=== PATIENT | female | born 1995 | race American Indian/Alaskan Native ===

== ENCOUNTER 2016-12-14 22:45 | Emergency (ER) | payer OTHER ==
[2016-12-14 22:46] VITALS: BMI 33.9
--- NOTE | 2016-12-14 23:08 | C.PDOC ---
History Of Present Illness Pt is presents with some vaginal bleeding. States she is . Unsure of duration . No f/c/n/v Tolerating PO Time Seen by Provider: 12/14/16 23:08 Chief Complaint (Nursing): Abdominal Pain History Per: Patient History/Exam Limitations: no limitations Onset/Duration Of Symptoms: Hrs Current Symptoms Are (Timing): Still Present Context: Other Severity: Moderate Pain Scale Rating Of: 4 Location Of Pain/Discomfort: Suprapubic Radiation Of Pain To:: None Quality Of Discomfort: Cramping Associated Symptoms: denies: Fever, Chills Exacerbating Factors: None Alleviating Factors: None Last Bowel Movement: Yesterday Recent travel outside of the [place]: No Additional History Per: Family Abnormal Vaginal Bleeding: Yes Past Medical History Reviewed: Historical Data, Nursing Documentation, Vital Signs Vital Signs: Last Vital Signs Temp 98.3 F 12/15/16 01:03 Pulse 87 12/15/16 01:03 Resp 20 12/15/16 01:03 BP 113/72 12/15/16 01:03 Pulse Ox 100 12/15/16 01:03 - Medical History PMH: Anxiety, Asthma, Bronchitis, Migraine - [facility] Procedures EXTRACTION OF POC, LOW CERVICAL, OPEN APPROACH (02/05/16) MONITORING OF POC, CARDIAC RATE, BLASTING MACHINE OPERATOR APPROACH (02/05/16) RELEASE PERITONEUM, OPEN APPROACH (02/05/16) SPINAL TAP (01/09/14) TRANSFUSE NONAUT RED BLOOD CELLS IN PERIPH VEIN, PERC (02/05/16) Family History: States: No Known Family Hx - Social History Hx Tobacco Use: Yes Hx Alcohol Use: Yes Hx Substance Use: No - Immunization History Hx Tetanus Toxoid Vaccination: No Hx Influenza Vaccination: No Hx Pneumococcal Vaccination: No Review Of Systems Constitutional: Negative for: Fever, Chills Cardiovascular: Negative for: Chest Pain Respiratory: Negative for: Shortness of Breath Gastrointestinal: Negative for: Nausea, Vomiting, Abdominal Pain Genitourinary: Positive for: Vaginal Bleeding Musculoskeletal: Negative for: Back Pain Skin: Negative for: Rash, Lesions, Jaundice, Bruising Neurological: Negative for: Weakness Psych: Negative for: Anxiety Physical Exam - Physical Exam Appears: Non-toxic, No Acute Distress Skin: Warm, Dry Neck: Supple Chest: Symmetrical Cardiovascular: Rhythm Regular Respiratory: No Rales, No Rhonchi, No Wheezing Gastrointestinal/Abdominal: Soft, Tenderness (mild wuprapubic), No Distention Back: Normal Inspection Extremity: Normal ROM Extremity: Bilateral: Atraumatic Neurological/Psych: Oriented x3, Normal Speech, Normal Cognition Gait: Steady ED Course And Treatment - Laboratory Results Result Diagrams: 12/14/16 23:31 03 23:31 O2 Sat by Pulse Oximetry: 100 Pulse Ox Interpretation: Normal Progress Note: blood work ,ivf, US Reevaluation Time: 01:36 Reassessment Condition: Improved Disposition Counseled Patient/Family Regarding: Studies Performed, Diagnosis, Need For Followup, Rx Given - Disposition Referrals: [facility] [Outside] [facility] [Outside] Disposition: HOME/ ROUTINE Disposition Time: 23:08 Condition: FAIR Additional Instructions: Please repeat the serum HCG in about 34-7 days. Do return if excessive bleeding occurs Prescriptions: Nitrofurantoin Macrocrystals [Macrobid] 1 cap PO BID #14 cap Instructions: Urinary Tract Infection in (ED), (ED), Threatened Miscarriage (ED) - Clinical Impression Clinical Impression: , UTI (urinary tract infection) in in first trimester, Vaginal bleeding in
[2016-12-14 23:13] VITALS: PULSE 87; O2SAT 100
[2016-12-14] MEDS ORDERED: Sodium Chloride 0.9% 1,000 ML IV ONE (23:22)
[2016-12-14 23:34] LABS: RBC URINE 8 /hpf (0-3); URINE BACTERIA RARE (<OCC); URINE BILIRUBIN NEGATIVE (NEGATIVE); URINE BLOOD NEGATIVE (NEGATIVE); URINE COLOR Yellow (YELLOW); URINE GLUCOSE (UA) NORMAL (Normal); URINE KETONE NEGATIVE (NEGATIVE); URINE LEUKOCYTE ESTERASE 3+ Leu/uL (Negative); URINE PROTEIN NEGATIVE (NEGATIVE); WBC URINE 50 /hpf (0-5)
[2016-12-14 23:35] LABS: BASO # 0.1 K/uL (0.0-0.2); BASO % 0.7 % (0.0-2.0); EOS # 0.1 K/uL (0.0-0.7); EOS % 0.7 % (0.0-4.0); HEMATOCRIT 31.1 % (34.0-47.0); LYMPH # 2.2 K/uL (1.0-4.3); LYMPH % 22.1 % (20.0-40.0); MEAN CELL VOLUME 70.7 fL (81.0-99.0); MEAN CORPUSCULAR HEMOGLOBIN 22.4 pg (27.0-31.0); MEAN CORPUSCULAR HGB CONC 31.7 g/dL (33.0-37.0); MEAN PLATELET VOLUME 9.7 fL (7.2-11.7); MONO # 0.4 K/uL (0.0-0.8); MONO % 3.7 % (0.0-10.0); RED CELL DISTRIBUTION WIDTH 18.2 % (11.5-14.5); WHITE BLOOD COUNT 10.1 K/uL (4.8-10.8)
[2016-12-14 23:43] LABS: CHLORIDE 98 mmol/L (98-107); SODIUM 136 mmol/L (132-148)
[2016-12-14 23:44] LABS: POTASSIUM 3.5 mmol/L (3.6-5.2)
[2016-12-14 23:46] LABS: ALB/GLOB RATIO 1.1 (1.0-2.1); ALKALINE PHOSPHATASE 48 U/L (38-126); ALT/SGPT 17 U/L (9-52); AST/SGOT 22 U/L (14-36); BILIRUBIN,TOTAL 0.2 mg/dL (0.2-1.3); BLOOD UREA NITROGEN 15 mg/dL (7-17); CARBON DIOXIDE 24 mmol/L (22-30); GFR AFRICAN-AMERICAN > 60; GLUCOSE,RANDOM 106 mg/dL (65-105); TOTAL PROTEIN 7.6 g/dL (6.3-8.3)
[2016-12-14 23:47] LABS: CALCIUM 8.3 mg/dl (8.6-10.4)
[2016-12-15 01:04] VITALS: BP 113/72; RESP 20; TEMP 98.3
--- NOTE | 2016-12-15 09:33 | US ---
Pelvic ultrasound History: Vaginal bleeding. Comparison: None available. Technique: Real-time sonography was performed through the pelvis utilizing transabdominal and transvaginal techniques. Findings: Positive test with beta HCG level measuring 7612. LMP of 11/16/2016. Estimated gestational age by LMP of 5 weeks and 3 days. Uterus: 13.7 x 5.6 x 6.7 centimeters. Retroverted. Cervix measures 3.1 centimeters. Round 9 millimeter hypoechoic structure noted in the uterus which may represent an early intrauterine gestational sac. No yolk sac or pole identified at this juncture. Right ovary: 4.1 x 2.9 x 2.5 centimeters. Normal flow. Complex cystic foci with heterogeneous echogenicity and internal septations within the right ovary measuring 2.2 x 1.6 x 1.6 centimeters. Normal flow. Trace free fluid adjacent to the right adnexa. Left ovary: 2.4 x 2.4 x 2.6 centimeters. Normal flow. Impression: Positive test. 9 millimeter hypoechoic structure seen in the uterus. This may represent an intrauterine gestational sac. No yolk sac or pole identified. These findings may represent an early intrauterine . Additional considerations may include a missed versus ectopic . Continued interval followup is recommended. Complex cystic lesion in the right ovary measuring 2.2 centimeters. Interval follow-up recommended. Limited 1st trimester ultrasound for viability purposes only. Continued interval followup with serial ultrasound, serial HCG levels, and gynecological consultation would be helpful if clinically indicated. These findings were preliminarily reported at 1:28 a.m. on 12/15/[address] Alivia Mcgrath from [facility].
== END 2016-12-15 01:55 | disposition home or self-care (01) ==
LOC: C.ER 22:45
DX: O23.41 Unspecified infection of urinary tract in pregnancy, first trimester (principal); O20.8 Other hemorrhage in early pregnancy; Z3A.01 Less than 8 weeks gestation of pregnancy

== ENCOUNTER 2017-02-03 01:40 | Emergency (ER) | payer OTHER ==
[2017-02-03 01:41] VITALS: BMI 33.9
[2017-02-03 01:55] VITALS: RESP 20; TEMP 98; O2SAT 98
[2017-02-03] MEDS ORDERED: Tmp-Smz 800 mg-160 mg DS Tab PO STA (02:17)
[2017-02-03] MEDS ORDERED: Oxycodone/Acetaminophen 5/325 mg Tab PO STA (02:17)
[2017-02-03] MEDS ORDERED: Tmp-Smz 800 mg-160 mg DS Tab ONE (02:23)
[2017-02-03] MEDS ORDERED: Oxycodone/Acetaminophen 5/325 mg Tab ONE (02:23)
--- NOTE | 2017-02-03 02:38 | C.PDOC ---
History Of Present Illness 21 y/o female presents to ED with complaint of painful lump to her left buttock for 4 days. Denies past history of similar. Otherwise denies fever, chills, discharge from the area, or other associated symptoms. Time Seen by Provider: 02/03/17 02:06 Chief Complaint (Nursing): Abnormal Skin Integrity History Per: Patient History/Exam Limitations: no limitations Onset/Duration Of Symptoms: Days (4) Current Symptoms Are (Timing): Still Present Location Of Injury: Left: Buttock Quality Of Symptoms: Painful. denies: Draining Recent travel outside of the [place]: No Past Medical History Reviewed: Historical Data, Nursing Documentation, Vital Signs Vital Signs: Last Vital Signs Temp 98 F 02/03/17 02:44 Pulse 90 02/03/17 02:44 Resp 20 02/03/17 02:44 BP 140/80 02/03/17 02:44 Pulse Ox 98 02/03/17 04:12 - Medical History PMH: Anxiety, Asthma, Bronchitis, Migraine - [facility] Procedures EXTRACTION OF POC, LOW CERVICAL, OPEN APPROACH (02/05/16) MONITORING OF POC, CARDIAC RATE, RHYTHMIC GYMNASTICS COACH APPROACH (02/05/16) RELEASE PERITONEUM, OPEN APPROACH (02/05/16) SPINAL TAP (01/09/14) TRANSFUSE NONAUT RED BLOOD CELLS IN PERIPH VEIN, PERC (02/05/16) Family History: States: Unknown Family Hx - Social History Hx Tobacco Use: Yes Hx Alcohol Use: Yes Hx Substance Use: No - Immunization History Hx Tetanus Toxoid Vaccination: No Hx Influenza Vaccination: No Hx Pneumococcal Vaccination: No Review Of Systems Except As Marked, All Systems Reviewed And Found Negative. Constitutional: Negative for: Fever, Chills Skin: Positive for: Lesions (painful lump left buttock). Negative for: Rash Physical Exam - Physical Exam Appears: Non-toxic, No Acute Distress Skin: Warm, Dry, Other (4.0 x 6.0 cm area of induration, with tenderness, to the left buttock. No fluctuant mass, open lesions or rectal involvement. ) Head: Atraumatic, Normacephalic Chest: Symmetrical Cardiovascular: Rhythm Regular, No Murmur Respiratory: Normal Breath Sounds, No Rales, No Rhonchi, No Wheezing Extremity: Normal ROM, Capillary Refill (< 2 sec. ) Neurological/Psych: Oriented x3, Normal Speech, Normal Cognition ED Course And Treatment O2 Sat by Pulse Oximetry: 98 (RA) Pulse Ox Interpretation: Normal Progress Note: Patient received pain medications, Keflex, and Bactrim. Advised to return in 2 days for wound check. Disposition Counseled Patient/Family Regarding: Diagnosis, Need For Followup, Rx Given - Disposition Disposition: HOME/ ROUTINE Disposition Time: 02:37 Condition: STABLE Additional Instructions: Apply warm compress to area Take meds as directed Wound check in 2 days in ED Return to ER if worse Prescriptions: Acetaminophen with Codeine [Tylenol with Codeine #3 Tablet] 2 each PO QID #14 tablet Cephalexin [cephalexin] 500 mg PO QID #28 cap Sulfamethoxazole/Trimethoprim [Bactrim DS 800 mg-160 mg] 1 tab PO BID #14 tab Instructions: Abscess (ED) - Clinical Impression Clinical Impression: Abscess of buttock, left - PA / BLOW MOLD OPERATOR / Resident Statement MD/DO has reviewed & agrees with the documentation as recorded. - Scribe Statement The provider has reviewed the documentation as recorded by the Lilly Goetz Provider Scribe Attestation: All medical record entries made by the Lilly were at my direction and personally dictated by me. I have reviewed the chart and agree that the record accurately reflects my personal performance of the history, physical exam, medical decision making, and the department course for this patient. I have also personally directed, reviewed, and agree with the discharge instructions and disposition.
[2017-02-03 02:45] VITALS: BP 140/80; PULSE 90
== END 2017-02-03 02:45 | disposition home or self-care (01) ==
LOC: C.ER 01:40
DX: L02.31 Cutaneous abscess of buttock (principal)

== ENCOUNTER 2018-02-01 21:11 | Emergency (ER) | payer OTHER ==
[2018-02-01 21:12] VITALS: BMI 42.5
--- NOTE | 2018-02-01 21:55 | C.PDOC ---
History Of Present Illness <Sarita Whitmore - Last Filed: 02/02/18 04:18> <Myrna Ocampo - Last Filed: 02/05/18 08:10> 22 year old female with a Hx of pseudotumor cerebri presents to the ER with a complaint of headache, dizziness, and nausea for the past 2 days. (+) photophobia. Patient has had many evaluations in the past for her headaches including multiple LPs and CTs, last one 2 years ago, with negative results. Patient's neurologist is Dr. Mitchell, who she has not seen in approximately one year. Patient took Topamax and "something with a D" for her symptoms but has run out; patient took tylenol today at 18:30 with no relief. Denies vomiting, visual changes, fever, subjective neurological changes, ETOH use, or drug use. ( Myrna Ocampo) <Sarita Whitmore - Last Filed: 02/02/18 04:18> History Per: Patient History/Exam Limitations: no limitations Onset/Duration Of Symptoms: Days Current Symptoms Are (Timing): Still Present Preceeding Symptoms: Known Migraine Symptoms Associated Symptoms: Photophobia, Nausea Recent travel outside of the [place]: No <Myrna Ocampo - Last Filed: 02/05/18 08:10> Time Seen by Provider: 02/01/18 21:39 Chief Complaint (Nursing): Headache Past Medical History Reviewed: Historical Data, Nursing Documentation, Vital Signs - Medical History PMH: Anxiety, Asthma, Bronchitis, Migraine Family History: States: Unknown Family Hx - Social History Hx Tobacco Use: Yes Hx Alcohol Use: Yes Hx Substance Use: No - Immunization History Hx Tetanus Toxoid Vaccination: No Hx Influenza Vaccination: No Hx Pneumococcal Vaccination: No <Myrna Ocampo - Last Filed: 02/05/18 08:10> Vital Signs: Last Vital Signs Temp 98.0 F 02/02/18 04:32 Pulse 73 02/02/18 04:32 Resp 18 02/02/18 04:32 BP 119/70 02/02/18 04:32 Pulse Ox 98 02/02/18 04:32 - [facility] Procedures EXTRACTION OF POC, LOW CERVICAL, OPEN APPROACH (08/07/17) MONITORING OF POC, CARDIAC RATE, AUTOMATION QA ANALYST APPROACH (08/07/17) RELEASE PERITONEUM, OPEN APPROACH (02/05/16) SPINAL TAP (01/09/14) TRANSFUSE NONAUT RED BLOOD CELLS IN PERIPH VEIN, PERC (02/05/16) Review Of Systems Except As Marked, All Systems Reviewed And Found Negative. Constitutional: Negative for: Fever, Chills Gastrointestinal: Positive for: Nausea. Negative for: Vomiting Musculoskeletal: Negative for: Neck Pain Neurological: Positive for: Headache, Dizziness, Other (Photophobia) <Myrna Ocampo - Last Filed: 02/05/18 08:10> Physical Exam - Physical Exam Appears: Non-toxic, No Acute Distress Skin: Normal Color, Warm, Dry Head: Atraumatic, Normacephalic Eye(s): bilateral: Normal Inspection, PERRL, EOMI Ear(s): Bilateral: Normal Nose: Normal Oral Mucosa: Moist Throat: Normal, No Erythema, No Exudate Neck: Normal, Supple Lymphatic: Normal Exam Chest: Symmetrical, No Tenderness Cardiovascular: Rhythm Regular Respiratory: Normal Breath Sounds, No Rales, No Rhonchi, No Wheezing Gastrointestinal/Abdominal: Soft, No Tenderness Extremity: Normal ROM (x4) Neurological/Psych: Oriented x3, Normal Speech, Normal Cognition, Normal Cranial Nerves (2-12 grosslu intact, no focal deficits), Normal Motor, Normal Sensation <Myrna Ocampo - Last Filed: 02/05/18 08:10> ED Course And Treatment - Laboratory Results Result Diagrams: 02/01/18 22:19 02/01/18 22:19 Progress Note: On reevaluation, patient feels a little better, states she feels a little less pressure, however, is still undecided on whether to allow us to perform an LP. Will continue to observe, currently her neurological exam is nonfocal, and she is awake, alert, oriented x3. On second reevaluation, patient states she feels better and refuses LP, patient feels comfortable being discharged home, will discharge with Rx for diamox and topamax, and instructions to follow up with neurologist. <Sarita Whitmore - Last Filed: 02/02/18 04:18> - Laboratory Results Result Diagrams: 02/01/18 22:19 02/01/18 22:19 O2 Sat by Pulse Oximetry: 99 (Room air) Pulse Ox Interpretation: Normal - CT Scan/US CT Head Other Rad Studies (CT/US): Read By Radiologist, Radiology Report Reviewed CT/US Interpretation: EXAM: CT Head Without Intravenous Contrast. CLINICAL HISTORY: 22 years old, female; Condition or disease; Headache; Headache not specified. TECHNIQUE: Axial computed tomography images of the head/brain without intravenous contrast. All CT scans at. this facility use one or more dose reduction techniques, viz.: automated exposure control; ma/kV. adjustment per patient size (including targeted exams where dose is matched to indication; i.e. head);. or iterative reconstruction technique. COMPARISON: No relevant prior studies available. FINDINGS: Brain: No intracranial hemorrhage. No mass. No definite edema. Ventricles: No hydrocephalus. Bones/joints: No acute fracture. Soft tissues: Unremarkable. Sinuses: No acute sinusitis. Mastoid air cells: No mastoid effusion. Orbits: Unremarkable as visualized. IMPRESSION : 1. No definite acute intracranial abnormality. Progress Note: CT head, blood work, and urinalysis ordered. Imitrex and zofran administered. Labs evaluated: anemia base line. Pt was seen and evaluated by Dr Whitmore, agreed upon plan and treatment. <Myrna Ocampo - Last Filed: 02/05/18 08:10> Disposition <Sarita Whitmore - Last Filed: 02/02/18 04:18> - Disposition Disposition Time: 04:30 <Myrna Ocampo - Last Filed: 02/05/18 08:10> - Disposition Referrals: Dominik Mitchell MD [Medical Doctor] - Disposition: HOME/ ROUTINE Condition: STABLE Additional Instructions: Follow up with Dr Mitchell in 1-2 days. Return to ER if symptoms persist or worsen. Prescriptions: acetaZOLAMIDE [Diamox] 250 mg PO BID #20 tab Topiramate [Topamax] 25 mg PO BID #20 tab Instructions: Headache, Adult (DC) Forms: [facility] (French), Work Excuse - Clinical Impression Clinical Impression: Headache <Sarita Whitmore - Last Filed: 02/02/18 04:18> - PA / ABA THERAPIST / Resident Statement / has reviewed & agrees with the documentation as recorded. - Scribe Statement The provider has reviewed the documentation as recorded by the Scribe <Myrna Ocampo - Last Filed: 02/05/18 08:10> - Scribe Statement Gurpreet Mcduffie All medical record entries made by the Scribe were at my direction and personally dictated by me. I have reviewed the chart and agree that the record accurately reflects my personal performance of the history, physical exam, medical decision making, and the department course for this patient. I have also personally directed, reviewed, and agree with the discharge instructions and disposition. (Myrna Ocampo)
[2018-02-01 22:26] LABS: BASO # 0.1 K/uL (0.0-0.2); BASO % 1.1 % (0.0-2.0); EOS % 0.5 % (0.0-4.0); HEMOGLOBIN 9.6 g/dL (11.0-16.0); LYMPH # 2.9 K/uL (1.0-4.3); LYMPH % 38.8 % (20.0-40.0); MEAN CELL VOLUME 67.5 fL (81.0-99.0); MEAN CORPUSCULAR HEMOGLOBIN 20.9 pg (27.0-31.0); MEAN PLATELET VOLUME 9.4 fL (7.2-11.7); MONO # 0.4 K/uL (0.0-0.8); NEUT # 4.1 K/uL (1.8-7.0); NEUT % 54.6 % (50.0-75.0); NRBC % 0.1 % (0.0-2.0); RBC 4.61 Mil/uL (3.80-5.20); RED CELL DISTRIBUTION WIDTH 18.4 % (11.5-14.5); WHITE BLOOD COUNT 7.5 K/uL (4.8-10.8)
[2018-02-01] MEDS ORDERED: Amoxicillin 250 mg/5 ml Susp (100 ml) ONE (22:26)
[2018-02-01 22:34] LABS: SQUAMOUS EPITHIAL 19 /hpf (0-5); URINE BACTERIA RARE (<OCC); URINE BILIRUBIN NEGATIVE (NEGATIVE); URINE BLOOD NEGATIVE (NEGATIVE); URINE CLARITY Hazy (Clear); URINE COLOR Yellow (YELLOW); URINE GLUCOSE (UA) NORMAL (Normal); URINE LEUKOCYTE ESTERASE NEG Leu/uL (Negative); URINE PROTEIN NEGATIVE (NEGATIVE)
[2018-02-01 22:36] LABS: HCG,QUALITATIVE URINE NEGATIVE (NEGATIVE)
[2018-02-01 22:46] LABS: ALB/GLOB RATIO 1.1 (1.0-2.1); ALT/SGPT 14 U/L (9-52); AST/SGOT 23 U/L (14-36); BLOOD UREA NITROGEN 10 mg/dL (7-17); CALCIUM 8.7 mg/dl (8.6-10.4); GFR AFRICAN-AMERICAN > 60; GFR NON-AFRICAN AMERICAN > 60
[2018-02-01 22:47] LABS: BARBITURATES, UR NEGATIVE (NEGATIVE); BENZODIAZEPINES, UR NEGATIVE (NEGATIVE); OPIATES, UR NEGATIVE (NEGATIVE); PHENCYCLIDINE, UR NEGATIVE (NEGATIVE)
--- NOTE | 2018-02-01 22:55 | CT ---
EXAM: CT Head Without Intravenous Contrast CLINICAL HISTORY: 22 years old, female; Condition or disease; Headache; Headache not specified TECHNIQUE: Axial computed tomography images of the head/brain without intravenous contrast. All CT scans at this facility use one or more dose reduction techniques, viz.: automated exposure control; ma/kV adjustment per patient size (including targeted exams where dose is matched to indication; i.e. head); or iterative reconstruction technique. COMPARISON: No relevant prior studies available. FINDINGS: Brain: No intracranial hemorrhage. No mass. No definite edema. Ventricles: No hydrocephalus. Bones/joints: No acute fracture. Soft tissues: Unremarkable. Sinuses: No acute sinusitis. Mastoid air cells: No mastoid effusion. Orbits: Unremarkable as visualized. IMPRESSION: 1. No definite acute intracranial abnormality.
[2018-02-01] MEDS ORDERED: Apap-Butalbital-Caffeine 325-50-40mg Tab PO STA (23:03)
[2018-02-01] MEDS ORDERED: Morphine 4 MG/ML VIAL ONE (23:57)
[2018-02-02 02:59] VITALS: RESP 18
[2018-02-02] MEDS ORDERED: Morphine 4 MG/ML VIAL ONE (03:06)
[2018-02-02 04:33] VITALS: BP 119/70; PULSE 73; TEMP 98
[2018-02-05 08:07] VITALS: O2SAT 99
== END 2018-02-02 04:42 | disposition home or self-care (01) ==
LOC: C.ER 21:11
DX: R51 Headache (principal)
CPT/HCPCS: 70450; 80053; 80324; 80345; 80346; 80349; 80353; 80358; 80361; 81001; 83992; 84703; 85025; 96374; 96375; 96376; 99285; J2270; J2405

== ENCOUNTER 2018-05-07 15:40 | Inpatient (IN) | payer OTHER ==
[2018-05-07 15:41] VITALS: BMI 42.5
[2018-05-07] MEDS ORDERED: Sodium Chloride 0.9% 1,000 ML IV STA (16:15)
[2018-05-07] MEDS ORDERED: Oxycodone/Acetaminophen 5/325 mg Tab PO STA (16:17)
--- NOTE | 2018-05-07 16:22 | C.PDOC ---
History Of Present Illness 22 y/o F c PMHx anxiety, asthma, scoliosis, pseudotumor cerebri p/w bilateral leg pain x 3 days. Pain is diffusely through both legs, severe, constant, nonradiating, associated with subjective fever and chills although patient states she has not had a fever. She denies chest pain, dyspnea, significant swelling, recent travel, OCP use, trauma, fall, cough. Has never had this pain prior. Time Seen by Provider: 05/07/18 15:56 Chief Complaint (Nursing): Dizziness/Lightheaded Past Medical History Vital Signs: Last Vital Signs Temp 99.6 F 05/07/18 19:12 Pulse 95 H 05/07/18 19:12 Resp 16 05/07/18 19:12 BP 97/61 L 05/07/18 19:12 Pulse Ox 99 05/07/18 19:12 - Medical History PMH: Anxiety, Asthma, Bronchitis, Migraine Denies: Depression, Diabetes, HTN - [facility] Procedures EXTRACTION OF POC, LOW CERVICAL, OPEN APPROACH (08/07/17) MONITORING OF POC, CARDIAC RATE, GENERAL WAREHOUSE WORKER APPROACH (08/07/17) RELEASE PERITONEUM, OPEN APPROACH (02/05/16) SPINAL TAP (01/09/14) TRANSFUSE NONAUT RED BLOOD CELLS IN PERIPH VEIN, PERC (02/05/16) Family History: States: Unknown Family Hx - Social History Hx Tobacco Use: Yes Hx Alcohol Use: Yes Hx Substance Use: No - Immunization History Hx Tetanus Toxoid Vaccination: No Hx Influenza Vaccination: No Hx Pneumococcal Vaccination: No Review Of Systems Except As Marked, All Systems Reviewed And Found Negative. Constitutional: Negative for: Fever Cardiovascular: Negative for: Chest Pain Physical Exam - Physical Exam Additional Physical Exam Comments: Gen: NAD Head: NC/AT Eyes: PERRL ENT: MMM Neck: Supple Chest: No tenderness CV: Regular rate Lungs: CTA b/l Abd: Soft, NT Back: No midline or CVA tenderness Extremities: Mild pitting edema. No focal tenderness or deformity. FROM. Skin: No rash Neuro: Alert, no focal deficit ED Course And Treatment - Laboratory Results Result Diagrams: 05/07/18 16:46 05/07/18 16:46 O2 Sat by Pulse Oximetry: 100 Medical Decision Making Medical Decision Making: Differential includes DVT, rhabdo, and mylagia associated with influenza. Will test with d dimer, CPK, and influenza swab. Treat with Percocet, patient states obtains hives from ibuprofen and has never had toradol before. Labs unremarkable. Patient with unresolved pain. Dr. Penn accepts patient to medical service for intractible pain, recommends rheum consult with Dr. Chavez. Disposition Discussed With : Delma Penn Doctor Will See Patient In The: Hospital - Disposition Disposition: HOSPITALIZED Disposition Time: 18:30 Condition: STABLE - Clinical Impression Clinical Impression: Intractable pain
[2018-05-07 16:50] LABS: BASO % 0.2 % (0.0-2.0); EOS % 0.1 % (0.0-4.0); HEMOGLOBIN 9.5 g/dL (11.0-16.0); LYMPH # 0.4 K/uL (1.0-4.3); MEAN CELL VOLUME 68.7 fL (81.0-99.0); MEAN CORPUSCULAR HEMOGLOBIN 21.4 pg (27.0-31.0); MEAN CORPUSCULAR HGB CONC 31.1 g/dL (33.0-37.0); MEAN PLATELET VOLUME 9.3 fL (7.2-11.7); MONO # 0.4 K/uL (0.0-0.8); MONO % 7.4 % (0.0-10.0); NEUT # 4.7 K/uL (1.8-7.0); NEUT % 85.3 % (50.0-75.0); PLATELET COUNT 215 K/uL (130-400); RBC 4.46 Mil/uL (3.80-5.20); RED CELL DISTRIBUTION WIDTH 17.7 % (11.5-14.5); WHITE BLOOD COUNT 5.5 K/uL (4.8-10.8)
[2018-05-07 16:56] LABS: SQUAMOUS EPITHIAL 1 /hpf (0-5)
[2018-05-07 16:57] LABS: HCG,QUALITATIVE URINE NEGATIVE (NEGATIVE)
[2018-05-07 17:01] LABS: URINE BILIRUBIN NEGATIVE (NEGATIVE); URINE BLOOD NEGATIVE (NEGATIVE); URINE CLARITY Clear (Clear); URINE COLOR Straw (YELLOW); URINE GLUCOSE (UA) NORMAL (Normal); URINE LEUKOCYTE ESTERASE NEG Leu/uL (Negative); URINE PROTEIN NEGATIVE (NEGATIVE); URINE UROBILINOGEN NORMAL mg/dL (0.2-1.0)
[2018-05-07] MEDS ORDERED: Oxycodone/Acetaminophen 5/325 mg Tab ONE (17:09)
[2018-05-07 17:14] LABS: ALB/GLOB RATIO 1.2 (1.0-2.1); ALBUMIN 4.1 g/dL (3.5-5.0); BLOOD UREA NITROGEN 9 mg/dL (7-17); CALCIUM 8.8 mg/dl (8.6-10.4); GFR AFRICAN-AMERICAN > 60; GFR NON-AFRICAN AMERICAN > 60
[2018-05-07 17:15] LABS: ALT/SGPT 23 U/L (9-52); AST/SGOT 17 U/L (14-36)
[2018-05-07 17:25] LABS: ANISOCYTOSIS SLIGHT; LYMPHOCYTE 6 % (20-40); MONOCYTE 8 % (0-10); NEUTROPHIL 86 % (50-75); PLATELET ESTIMATE NORMAL (NORMAL); TOTAL CELLS COUNTED 100
[2018-05-07 17:26] LABS: HYPOCHROMIC MODERATE; MICROCYTOSIS SLIGHT; OVALOCYTES SLIGHT; POLYCHROMIC SLIGHT
[2018-05-07 20:40] VITALS: RESP 20
[2018-05-08 07:03] LABS: BASO % 0.8 % (0.0-2.0); EOS % 0.2 % (0.0-4.0); HEMOGLOBIN 9.1 g/dL (11.0-16.0); LYMPH # 0.8 K/uL (1.0-4.3); LYMPH % 26.8 % (20.0-40.0); MEAN CELL VOLUME 68.6 fL (81.0-99.0); MEAN CORPUSCULAR HEMOGLOBIN 21.6 pg (27.0-31.0); MEAN CORPUSCULAR HGB CONC 31.4 g/dL (33.0-37.0); MEAN PLATELET VOLUME 10.4 fL (7.2-11.7); MONO # 0.5 K/uL (0.0-0.8); MONO % 17.3 % (0.0-10.0); NEUT # 1.7 K/uL (1.8-7.0); NEUT % 54.9 % (50.0-75.0); RBC 4.23 Mil/uL (3.80-5.20); RED CELL DISTRIBUTION WIDTH 17.7 % (11.5-14.5)
[2018-05-08 07:25] LABS: ALB/GLOB RATIO 1.2 (1.0-2.1); ALBUMIN 3.6 g/dL (3.5-5.0); ALT/SGPT 22 U/L (9-52); AST/SGOT 17 U/L (14-36); BLOOD UREA NITROGEN 9 mg/dL (7-17); CALCIUM 8.3 mg/dl (8.6-10.4); GFR AFRICAN-AMERICAN > 60; GFR NON-AFRICAN AMERICAN > 60
--- NOTE | 2018-05-08 11:23 | CP.PCM.HP ---
History of Present Illness - History of Present Illness History of Present Illness: pt came for severe leg pains dificulty ambulating back pain worse for 2 days Present on Admission - Present on Admission Any Indicators Present on Admission: No Review of Systems - Review of Systems Systems not reviewed;Unavailable: Acuity of Condition - Constitutional Constitutional: As Per HPI - EENT Eyes: As Per HPI Ears: As Per HPI Nose/Mouth/Throat: As Per HPI - Breasts Breasts: As Per HPI - Cardiovascular Cardiovascular: As Per HPI - Respiratory Respiratory: As Per HPI - Gastrointestinal Gastrointestinal: As Per HPI - Genitourinary Genitourinary: As Per HPI - Reproductive: Female Reproductive:Female: As Per HPI - Menstruation Menstruation: As Per HPI - Musculoskeletal Musculoskeletal: As Per HPI - Integumentary Integumentary: As Per HPI - Neurological Neurological: As Per HPI - Psychiatric Psychiatric: As Per HPI - Endocrine Endocrine: As Per HPI - Hematologic/Lymphatic Hematologic: As Per HPI Past Patient History - Infectious Disease Hx of Infectious Diseases: None - Past Medical History & Family History Past Medical History?: Yes - Past Social History Smoking Status: Never Smoked - CARDIAC Hx Hypertension: No - PULMONARY Hx Asthma: Yes Hx Bronchitis: Yes - NEUROLOGICAL Hx Migraine: Yes - HEENT Other/Comment: photophobia - MUSCULOSKELETAL/RHEUMATOLOGICAL Hx Back Pain: Yes Hx Falls: No Other/Comment: scoliosis - PSYCHIATRIC Hx Anxiety: Yes Hx Depression: No Hx Substance Use: No - SURGICAL HISTORY Hx Section: Yes (X2) Hx Orthopedic Surgery: Yes (RIGHT ANKLE) - ANESTHESIA Hx Anesthesia: Yes Hx Anesthesia Reactions: No Meds Allergies/Adverse Reactions: Allergies Allergy/AdvReac Type Severity Reaction Status Date / Time ibuprofen [From Motrin] Allergy Intermediate RASH Verified 05/07/18 15:45 Physical Exam - Constitutional Appears: Non-toxic - Head Exam Head Exam: NORMAL INSPECTION - Eye Exam Eye Exam: Normal appearance, PERRL - ENT Exam ENT Exam: Mucous Membranes Moist - Neck Exam Neck exam: Positive for: Normal Inspection - Respiratory Exam Respiratory Exam: Clear to Auscultation Bilateral - Cardiovascular Exam Cardiovascular Exam: REGULAR RHYTHM - GI/Abdominal Exam GI & Abdominal Exam: Normal Bowel Sounds - Extremities Exam Extremities exam: Positive for: calf tenderness, normal inspection - Back Exam Back exam: CVA tenderness (L) - Neurological Exam Neurological exam: Alert, Normal Gait, Oriented x3 - Psychiatric Exam Psychiatric exam: Normal Mood - Skin Skin Exam: Normal Color Results - Vital Signs Recent Vital Signs: Last Vital Signs Temp 98.2 F 05/08/18 08:01 Pulse 81 05/08/18 08:01 Resp 20 05/08/18 08:01 BP 110/60 05/08/18 08:01 Pulse Ox 100 05/08/18 08:01 - Labs Result Diagrams: 05/08/18 06:52 05/08/18 06:52 Labs: Laboratory Results - last 24 hr 05/07/18 05/07/18 05/07/18 16:46 16:46 16:46 WBC 5.5 RBC 4.46 Hgb 9.5 L Hct 30.6 L MCV 68.7 L MCH 21.4 L MCHC 31.1 L RDW 17.7 H Plt Count 215 MPV 9.3 Neut % (Auto) 85.3 H Lymph % (Auto) 7.0 L [place] % (Auto) 7.4 Eos % (Auto) 0.1 Baso % (Auto) 0.2 Neut # (Auto) 4.7 Lymph # (Auto) 0.4 L [place] # (Auto) 0.4 Eos # (Auto) 0.0 Baso # (Auto) 0.0 Neutrophils % (Manual) 86 H Lymphocytes % (Manual) 6 L Monocytes % (Manual) 8 Platelet Estimate Normal Polychromasia Slight Hypochromasia (manual) Moderate Anisocytosis (manual) Slight Microcytosis (manual) Slight Ovalocytes Slight ESR D-Dimer, Quantitative < 200 Sodium Potassium Chloride Carbon Dioxide Anion Gap BUN Creatinine Est GFR ( Amer) Est GFR (Non-Af Amer) Random Glucose Calcium Total Bilirubin AST ALT Alkaline Phosphatase Total Creatine Kinase C-React Prot High Sens Total Protein Albumin Globulin Albumin/Globulin Ratio Urine Color Urine Clarity Urine pH Ur Specific [place] Urine Protein Urine Glucose (UA) Urine Ketones Urine Blood Urine Nitrate Urine Bilirubin Urine Urobilinogen Ur Leukocyte Esterase Urine WBC (Auto) Urine RBC (Auto) Ur Squamous Epith Cells Urine HCG, Qual Influenza Typ A,B (EIA) Negative for flu a/b 05/07/18 05/07/18 05/08/18 16:46 16:46 06:52 WBC 3.0 L RBC 4.23 Hgb 9.1 L Hct 29.0 L MCV 68.6 L MCH 21.6 L MCHC 31.4 L RDW 17.7 H Plt Count 199 MPV 10.4 Neut % (Auto) 54.9 Lymph % (Auto) 26.8 [place] % (Auto) 17.3 H Eos % (Auto) 0.2 Baso % (Auto) 0.8 Neut # (Auto) 1.7 L Lymph # (Auto) 0.8 L [place] # (Auto) 0.5 Eos # (Auto) 0.0 Baso # (Auto) 0.0 Neutrophils % (Manual) Lymphocytes % (Manual) Monocytes % (Manual) Platelet Estimate Polychromasia Hypochromasia (manual) Anisocytosis (manual) Microcytosis (manual) Ovalocytes ESR 28 H D-Dimer, Quantitative Sodium 134 Potassium 3.8 Chloride 101 Carbon Dioxide 26 Anion Gap 11 BUN 9 Creatinine 0.6 L Est GFR ( Amer) > 60 Est GFR (Non-Af Amer) > 60 Random Glucose 86 Calcium 8.8 Total Bilirubin 0.4 AST 17 ALT 23 Alkaline Phosphatase 57 Total Creatine Kinase 99 C-React Prot High Sens Total Protein 7.5 Albumin 4.1 Globulin 3.4 Albumin/Globulin Ratio 1.2 Urine Color Straw Urine Clarity Clear Urine pH 6.0 Ur Specific [place] 1.015 Urine Protein Negative Urine Glucose (UA) Normal Urine Ketones Negative Urine Blood Negative Urine Nitrate Negative Urine Bilirubin Negative Urine Urobilinogen Normal Ur Leukocyte Esterase Neg Urine WBC (Auto) < 1 Urine RBC (Auto) < 1 Ur Squamous Epith Cells 1 Urine HCG, Qual Negative Influenza Typ A,B (EIA) 05/08/18 05/08/18 06:52 06:52 WBC RBC Hgb Hct MCV MCH MCHC RDW Plt Count MPV Neut % (Auto) Lymph % (Auto) [place] % (Auto) Eos % (Auto) Baso % (Auto) Neut # (Auto) Lymph # (Auto) [place] # (Auto) Eos # (Auto) Baso # (Auto) Neutrophils % (Manual) Lymphocytes % (Manual) Monocytes % (Manual) Platelet Estimate Polychromasia Hypochromasia (manual) Anisocytosis (manual) Microcytosis (manual) Ovalocytes ESR D-Dimer, Quantitative Sodium 135 Potassium 4.0 Chloride 104 Carbon Dioxide 24 Anion Gap 11 BUN 9 Creatinine 0.6 L Est GFR ( Amer) > 60 Est GFR (Non-Af Amer) > 60 Random Glucose 84 Calcium 8.3 L Total Bilirubin 0.3 AST 17 ALT 22 Alkaline Phosphatase 50 Total Creatine Kinase C-React Prot High Sens > 15.00 H Total Protein 6.7 Albumin 3.6 Globulin 3.1 Albumin/Globulin Ratio 1.2 Urine Color Urine Clarity Urine pH Ur Specific [place] Urine Protein Urine Glucose (UA) Urine Ketones Urine Blood Urine Nitrate Urine Bilirubin Urine Urobilinogen Ur Leukocyte Esterase Urine WBC (Auto) Urine RBC (Auto) Ur Squamous Epith Cells Urine HCG, Qual Influenza Typ A,B (EIA) Assessment & Plan - Assessment and Plan (Free Text) Assessment: ac leg pains dificulty ambuating fever improved aneamia back pain Plan: as per orders - Date & Time Date: 05/08/18 Time: 11:25
[2018-05-08 15:37] LABS: ANTI SREPTOLYSIN O NEGATIVE (NEGATIVE)
--- NOTE | 2018-05-08 17:28 | CP.PCM.CON ---
History of Present Illness - History of Present Illness History of Present Illness: Neurology Consultation Note: Ms. Truong is a 22-year-old woman with a past medical history of idiopathic intracranial hypertension, who complains of bilateral lower extremity pain/ tingling. The pain involves both legs and the lower back. It radiates from the back to the inner thighs bilaterally, but is worse on the right. She states that the pain is severe. She is on Topamax 100 mg daily at home. She was previously taking Diamox, but stopped it several months ago because it was not renewed. She has not seen a neurologist for over a year due to change in insurance. CT scan of the head was relatively normal. Review of Systems - Review of Systems All systems: reviewed and no additional remarkable complaints except Past Patient History - Infectious Disease Hx of Infectious Diseases: None - Past Medical History & Family History Past Medical History?: Yes - Past Social History Smoking Status: Never Smoked - CARDIAC Hx Hypertension: No - PULMONARY Hx Asthma: Yes Hx Bronchitis: Yes - NEUROLOGICAL Hx Migraine: Yes - HEENT Other/Comment: photophobia - MUSCULOSKELETAL/RHEUMATOLOGICAL Hx Back Pain: Yes Hx Falls: No Other/Comment: scoliosis - PSYCHIATRIC Hx Anxiety: Yes Hx Depression: No Hx Substance Use: No - SURGICAL HISTORY Hx Section: Yes (X2) Hx Orthopedic Surgery: Yes (RIGHT ANKLE) - ANESTHESIA Hx Anesthesia: Yes Hx Anesthesia Reactions: No Meds Allergies/Adverse Reactions: Allergies Allergy/AdvReac Type Severity Reaction Status Date / Time ibuprofen [From Motrin] Allergy Intermediate RASH Verified 05/07/18 15:45 - Medications Medications: Current Medications Duloxetine HCl (Cymbalta) 60 mg PO DAILY [facility] Morphine Sulfate (Morphine) 2 mg IVP Q6H PRN PRN Reason: Pain, moderate (4-7) Last Admin: 05/08/18 16:05 Dose: 2 mg Pneumococcal Polyvalent Vaccine (Pneumovax 23 Vaccine) 0.5 ml IM .ONCE ONE Stop: 05/09/18 10:01 Physical Exam - Neurological Exam Neurological exam: Alert, CN II-XII Intact, Normal Gait, Oriented x3, Reflexes Normal Results - Vital Signs Recent Vital Signs: Last Vital Signs Temp 98.2 F 05/08/18 08:01 Pulse 81 05/08/18 08:01 Resp 20 05/08/18 08:01 BP 110/60 05/08/18 08:01 Pulse Ox 100 05/08/18 08:01 - Labs Result Diagrams: 05/08/18 06:52 05/08/18 06:52 Labs: Laboratory Results - last 24 hr 05/07/18 05/08/18 05/08/18 16:46 06:52 06:52 WBC 3.0 L RBC 4.23 Hgb 9.1 L Hct 29.0 L MCV 68.6 L MCH 21.6 L MCHC 31.4 L RDW 17.7 H Plt Count 199 MPV 10.4 Neut % (Auto) 54.9 Lymph % (Auto) 26.8 [place] % (Auto) 17.3 H Eos % (Auto) 0.2 Baso % (Auto) 0.8 Neut # (Auto) 1.7 L Lymph # (Auto) 0.8 L [place] # (Auto) 0.5 Eos # (Auto) 0.0 Baso # (Auto) 0.0 Neutrophils % (Manual) 86 H Lymphocytes % (Manual) 6 L Monocytes % (Manual) 8 Platelet Estimate Normal Polychromasia Slight Hypochromasia (manual) Moderate Anisocytosis (manual) Slight Microcytosis (manual) Slight Ovalocytes Slight ESR 28 H Sodium 135 Potassium 4.0 Chloride 104 Carbon Dioxide 24 Anion Gap 11 BUN 9 Creatinine 0.6 L Est GFR ( Amer) > 60 Est GFR (Non-Af Amer) > 60 Random Glucose 84 Calcium 8.3 L Total Bilirubin 0.3 AST 17 ALT 22 Alkaline Phosphatase 50 C-React Prot High Sens Total Protein 6.7 Albumin 3.6 Globulin 3.1 Albumin/Globulin Ratio 1.2 Anti-Staphylolysin O 05/08/18 05/08/18 06:52 06:52 WBC RBC Hgb Hct MCV MCH MCHC RDW Plt Count MPV Neut % (Auto) Lymph % (Auto) [place] % (Auto) Eos % (Auto) Baso % (Auto) Neut # (Auto) Lymph # (Auto) [place] # (Auto) Eos # (Auto) Baso # (Auto) Neutrophils % (Manual) Lymphocytes % (Manual) Monocytes % (Manual) Platelet Estimate Polychromasia Hypochromasia (manual) Anisocytosis (manual) Microcytosis (manual) Ovalocytes ESR Sodium Potassium Chloride Carbon Dioxide Anion Gap BUN Creatinine Est GFR ( Amer) Est GFR (Non-Af Amer) Random Glucose Calcium Total Bilirubin AST ALT Alkaline Phosphatase C-React Prot High Sens > 15.00 H Total Protein Albumin Globulin Albumin/Globulin Ratio Anti-Staphylolysin O Negative Assessment & Plan (1) Lower extremity pain Assessment and Plan: The patient has had an 80 lb weight gain over the last 1.5 years and the pain could be due to spinal changes as a result. An MRI of the lumbar spine is recommended. Gabapentin 300 mg TID may be started for the pain. Status: Acute (2) Headache Assessment and Plan: She is on topamax, for her headaches, but she does not have migraine headache, she has headache due to intracranial hypertension. I recommend starting Diamox and obtaining MRI of the brain. She complained of tingling in her lower extremities, which could be due to the Topamax. This should be decreased to 50 mg daily. Status: Acute
--- NOTE | 2018-05-08 17:54 | CT ---
Date of service: 05/08/2018 PROCEDURE: CT HEAD WITHOUT CONTRAST. HISTORY: intractable leg pain/hx of pseudotumor cerebri COMPARISON: Head CT without contrast 02/01/2018. TECHNIQUE: Axial computed tomography images were obtained through the head/brain without intravenous contrast. Radiation dose: Total exam DLP = 813.06 mGy-cm. This CT exam was performed using one or more of the following dose reduction techniques: Automated exposure control, adjustment of the mA and/or kV according to patient size, and/or use of iterative reconstruction technique. FINDINGS: HEMORRHAGE: No intracranial hemorrhage. BRAIN: Normal escalera-white matter differentiation and density are appreciated throughout the cerebrum and cerebellum with the brainstem appearing unremarkable as well. There is no mass effect. There is no suspicious extra-axial fluid collection and the midline brain anatomy appears diffusely unremarkable. No significant interval change appreciable. VENTRICLES: Unremarkable. No hydrocephalus. CALVARIUM: Unremarkable. PARANASAL SINUSES: Unremarkable as visualized. No significant inflammatory changes. MASTOID AIR CELLS: Unremarkable as visualized. No inflammatory changes. OTHER FINDINGS: None. IMPRESSION: Stable normal appearing noncontrast head CT.
[2018-05-08] MEDS: acetaZOLAMIDE 500 mg SR Cap PO SCH (18:52)
--- NOTE | 2018-05-09 08:20 | RAD ---
Date of service: 05/08/2018 PROCEDURE: Bilateral Knee Radiographs. HISTORY: joint pain COMPARISON: None. FINDINGS: BONES: Right Knee: Normal. No fracture. Left Knee: Normal. No fracture. JOINTS: Right Knee: Normal. No osteoarthritis. Left knee: Normal. No osteoarthritis. SOFT TISSUES: Right Knee: Normal. Left Knee: Normal. JOINT EFFUSION: Right Knee: None. Left Knee: None. OTHER FINDINGS: None. IMPRESSION: Normal radiographs of the knees.
--- NOTE | 2018-05-09 08:21 | RAD ---
Date of service: 05/08/2018 PROCEDURE: BILATERAL HANDS RADIOGRAPHS HISTORY: erosions COMPARISON: None available. TECHNIQUE: AP and lateral views of the bilateral hands been submitted for interpretation. FINDINGS: No acute fracture or destructive bony lesion identified. No subluxation or dislocation identified. Local soft tissues appear diffusely unremarkable. IMPRESSION: Unremarkable bilateral hand radiographs.
[2018-05-09] MEDS: acetaZOLAMIDE 500 mg SR Cap PO SCH ×2 (09:26→18:09)
--- NOTE | 2018-05-09 09:31 | CP.PCM.PN ---
Subjective - Date & Time of Evaluation Date of Evaluation: 05/09/18 Time of Evaluation: 09:28 - Subjective Subjective: pt still c/o of pain lower ext tender calf and back venous doppler report pending Objective - Vital Signs/Intake and Output Vital Signs (last 24 hours): Temp Pulse Resp BP Pulse Ox 98.7 F 81 20 116/73 97 05/09/18 07:36 05/09/18 07:36 05/09/18 07:36 05/09/18 07:36 05/09/18 07:36 - Medications Medications: Current Medications Acetazolamide (Diamox Sequels 500 Mg Sr Cap) 500 mg PO BID [facility] Last Admin: 05/09/18 09:26 Dose: 500 mg Duloxetine HCl (Cymbalta) 60 mg PO DAILY [facility] Last Admin: 05/09/18 09:25 Dose: 60 mg Gabapentin (Neurontin) 300 mg PO TID [facility] Last Admin: 05/09/18 09:25 Dose: 300 mg Pneumococcal Polyvalent Vaccine (Pneumovax 23 Vaccine) 0.5 ml IM .ONCE ONE Stop: 05/09/18 10:01 Last Admin: 05/09/18 09:27 Dose: Not Given Topiramate (Topamax) 25 mg PO BID [facility] Last Admin: 05/09/18 09:25 Dose: 25 mg - Labs Labs: 05/08/18 06:52 05/08/18 06:52 - Constitutional Appears: Non-toxic - Head Exam Head Exam: NORMAL INSPECTION - Eye Exam Eye Exam: Normal appearance Pupil Exam: NORMAL ACCOMODATION - ENT Exam ENT Exam: Mucous Membranes Moist - Neck Exam Neck Exam: Full ROM - Respiratory Exam Respiratory Exam: Clear to Ausculation Bilateral - Cardiovascular Exam Cardiovascular Exam: REGULAR RHYTHM - GI/Abdominal Exam GI & Abdominal Exam: Normal Bowel Sounds - Extremities Exam Extremities Exam: Calf Tenderness - Back Exam Back Exam: CVA tenderness (L) - Neurological Exam Neurological Exam: Alert, Oriented x3 - Psychiatric Exam Psychiatric exam: Normal Affect - Skin Skin Exam: Pallor Assessment and Plan - Assessment and Plan (Free Text) Assessment: pain lower ext pain back aneamia obesity Plan: await rhumatology consult and rest of neuro evaluation order pt
[2018-05-09] MEDS ORDERED: Pneumococcal 23-Valent Vaccine IM ONE (10:00)
--- NOTE | 2018-05-09 10:58 | CP.PCM.PN ---
Subjective - Date & Time of Evaluation Date of Evaluation: 05/09/18 Time of Evaluation: 10:55 - Subjective Subjective: Ms. yancey was seen and examined at the bedside. She is alert, oriented in all spheres. She claims of experiencing occipital headache with pain scale of 8/10, non radiating. She denies any dizziness, blurred vision, diplopia, nausea, or vomiting. She further states of having poor appetite due to her headache. She is able to participate during therapy session, however, experiencing low back pain radiating to her right lower extremity. She is able to stand up beside her bed, but not able to ambulate. There was no untoward events overnight. Objective - Vital Signs/Intake and Output Vital Signs (last 24 hours): Temp Pulse Resp BP Pulse Ox 98.7 F 81 20 116/73 97 05/09/18 07:36 05/09/18 07:36 05/09/18 07:36 05/09/18 07:36 05/09/18 07:36 - Medications Medications: Current Medications Acetaminophen (Tylenol 325mg Tab) 650 mg PO Q6 PRN PRN Reason: Pain, moderate (4-7) Acetazolamide (Diamox Sequels 500 Mg Sr Cap) 500 mg PO BID [facility] Last Admin: 05/09/18 09:26 Dose: 500 mg Duloxetine HCl (Cymbalta) 60 mg PO DAILY [facility] Last Admin: 05/09/18 09:25 Dose: 60 mg Gabapentin (Neurontin) 300 mg PO TID [facility] Last Admin: 05/09/18 09:25 Dose: 300 mg Topiramate (Topamax) 25 mg PO BID [facility] Last Admin: 05/09/18 09:25 Dose: 25 mg - Labs Labs: 05/08/18 06:52 05/08/18 06:52 - Constitutional Appears: No Acute Distress - Head Exam Head Exam: NORMAL INSPECTION - Neurological Exam Neurological Exam: Alert, Awake, Oriented x3 Neuro motor strength exam: Left Upper Extremity: 4, Right Upper Extremity: 4, Left Lower Extremity: 4, Right Lower Extremity: 4 Additional comments: alert, able to stand but not ambulate, lower extremities are weak Assessment and Plan (1) Lower extremity pain Assessment & Plan: Case discussed with Dr. Dyer, continue all current medical and physical therapies. Pending MRI of the lumbar spine. Status: Acute (2) Headache Assessment & Plan: Case discussed with Dr. Dyer, continue all current medical regimen including diamox and new doses of topamax. Recommend hydration, repeat CT of the head if the severity of headache intensity or persist, keep head of bed elevated at least 30 degrees. Status: Acute
--- NOTE | 2018-05-10 07:26 | CP.PCM.CON ---
History of Present Illness - History of Present Illness History of Present Illness: 22 year old female complaining of leg and back pain for the past 4 days. She has never had this type of pain in the past. She does suffer from occipatal headaches. Past history includes anxiety, asthma, scoliosis, and pseudo tumor cerebri. Xrays of the knees and hands were negative. Lab studies reveal a sed rate of 28, CRP of 15 and an ASO which was negative. Complete arthritis and lupus panels pending. Review of Systems - Constitutional Constitutional: Headache - Musculoskeletal Musculoskeletal: Arthralgias, Back Pain - Neurological Neurological: Numbness, Headaches - Psychiatric Psychiatric: Depression Past Patient History - Infectious Disease Hx of Infectious Diseases: None - Past Medical History & Family History Past Medical History?: Yes - Past Social History Smoking Status: Light Smoker < 10 Cigarettes Daily Chewing Tobacco Use: No Cigar Use: No Alcohol: None Drugs: Denies - CARDIAC Hx Hypertension: No - PULMONARY Hx Respiratory Disorders: No Hx Asthma: Yes Hx Bronchitis: Yes - NEUROLOGICAL Hx Neurological Disorder: Yes Hx Migraine: Yes - HEENT Hx HEENT Problems: Yes Other/Comment: photophobia - RENAL Hx Chronic Kidney Disease: No - ENDOCRINE/METABOLIC Hx Endocrine Disorders: No - HEMATOLOGICAL/ONCOLOGICAL Hx Blood Disorders: No - INTEGUMENTARY Hx Dermatological Problems: No - MUSCULOSKELETAL/RHEUMATOLOGICAL Hx Musculoskeletal Disorders: Yes Hx Back Pain: Yes Hx Falls: No Other/Comment: scoliosis - GASTROINTESTINAL Hx Gastrointestinal Disorders: No - GENITOURINARY/GYNECOLOGICAL Hx Genitourinary Disorders: No - PSYCHIATRIC Hx Psychophysiologic Disorder: Yes Hx Anxiety: Yes Hx Depression: No Hx Substance Use: No - SURGICAL HISTORY Hx Surgeries: Yes Hx Section: Yes (X2) Hx Orthopedic Surgery: Yes (RIGHT ANKLE) - ANESTHESIA Hx Anesthesia: Yes Hx Anesthesia Reactions: No Hx Malignant Hyperthermia: No Has any member of the family had a problem w/ anesthesia?: No Meds Allergies/Adverse Reactions: Allergies Allergy/AdvReac Type Severity Reaction Status Date / Time ibuprofen [From Motrin] Allergy Intermediate RASH Verified 05/07/18 15:45 - Medications Medications: Current Medications Acetaminophen (Tylenol 325mg Tab) 650 mg PO Q6 PRN PRN Reason: Pain, moderate (4-7) Acetazolamide (Diamox Sequels 500 Mg Sr Cap) 500 mg PO BID [facility] Last Admin: 05/09/18 18:09 Dose: 500 mg Duloxetine HCl (Cymbalta) 60 mg PO DAILY [facility] Last Admin: 05/09/18 09:25 Dose: 60 mg Gabapentin (Neurontin) 300 mg PO TID [facility] Last Admin: 05/09/18 18:09 Dose: 300 mg Topiramate (Topamax) 25 mg PO BID [facility] Last Admin: 05/09/18 18:09 Dose: 25 mg Physical Exam - Constitutional Appears: No Acute Distress - Head Exam Head Exam: NORMOCEPHALIC - Eye Exam Eye Exam: Normal appearance Pupil Exam: NORMAL ACCOMODATION - ENT Exam ENT Exam: Normal Exam - Neck Exam Neck exam: Positive for: Normal Inspection - Respiratory Exam Respiratory Exam: NORMAL BREATHING PATTERN - Cardiovascular Exam Cardiovascular Exam: REGULAR RHYTHM - GI/Abdominal Exam GI & Abdominal Exam: Normal Bowel Sounds - Rectal Exam Rectal Exam: Deferred - Extremities Exam Extremities exam: Positive for: normal inspection - Back Exam Back exam: NORMAL INSPECTION - Neurological Exam Neurological exam: Oriented x3 - Psychiatric Exam Psychiatric exam: Depressed - Skin Skin Exam: Dry Results - Vital Signs Recent Vital Signs: Last Vital Signs Temp 98.9 F 05/09/18 23:59 Pulse 91 H 05/09/18 23:59 Resp 20 05/09/18 23:59 BP 101/69 05/09/18 23:59 Pulse Ox 100 05/09/18 23:59 - Labs Result Diagrams: 05/08/18 06:52 05/08/18 06:52 Assessment & Plan (1) Anemia Status: Acute (2) Lower extremity pain Status: Acute (3) Headache Status: Acute (4) Depression Status: Acute
--- NOTE | 2018-05-10 07:53 | CP.PCM.PN ---
Subjective - Date & Time of Evaluation Date of Evaluation: 05/10/18 Time of Evaluation: 07:49 - Subjective Subjective: Ms. Truong was seen and examined at the bedside. She is alert, oriented, claims of able to sleep last night. She further claims of her headache improved but remains of poor appetite due to her severe low back pain. She is able to move her lower extremities but remains weaker than her upper extremities. There was no untoward events overnight. Objective - Vital Signs/Intake and Output Vital Signs (last 24 hours): Temp Pulse Resp BP Pulse Ox 98.9 F 91 H 20 101/69 100 05/09/18 23:59 05/09/18 23:59 05/09/18 23:59 05/09/18 23:59 05/09/18 23:59 Intake and Output: 05/10/18 05/10/18 06:59 18:59 Intake Total 480 Balance 480 - Medications Medications: Current Medications Acetaminophen (Tylenol 325mg Tab) 650 mg PO Q6 PRN PRN Reason: Pain, moderate (4-7) Acetazolamide (Diamox Sequels 500 Mg Sr Cap) 500 mg PO BID [facility] Last Admin: 05/09/18 18:09 Dose: 500 mg Duloxetine HCl (Cymbalta) 60 mg PO DAILY [facility] Last Admin: 05/09/18 09:25 Dose: 60 mg Gabapentin (Neurontin) 300 mg PO TID [facility] Last Admin: 05/09/18 18:09 Dose: 300 mg Topiramate (Topamax) 25 mg PO BID [facility] Last Admin: 05/09/18 18:09 Dose: 25 mg - Labs Labs: 05/08/18 06:52 05/08/18 06:52 - Constitutional Appears: No Acute Distress - Head Exam Head Exam: NORMAL INSPECTION - Eye Exam Pupil Exam: PERRL - Neurological Exam Neurological Exam: Alert, Awake, Oriented x3 Neuro motor strength exam: Left Upper Extremity: 5, Right Upper Extremity: 5, Left Lower Extremity: 2/1, Right Lower Extremity: 2/1 Additional comments: alert, oriented, able to follow simple commands, sensation is intact. Assessment and Plan (1) Lower extremity pain Assessment & Plan: Case discussed with Dr. Dyer, continue all current medical and physical therapies. Pending MRI of the lumbar spine. Status: Acute
[2018-05-10 08:08] VITALS: BP 99/62; PULSE 85; TEMP 98.2; O2SAT 96
--- NOTE | 2018-05-10 10:26 | RAD ---
Date of service: 05/10/2018 PROCEDURE: Radiographs of the Lumbar Spine. HISTORY: back pain COMPARISON: No prior. FINDINGS: BONES: Normal alignment. No listhesis. No fracture. DISC SPACES: Unremarkable. OTHER FINDINGS: None. IMPRESSION: Unremarkable radiographs of the lumbar spine.
[2018-05-10] MEDS: acetaZOLAMIDE 500 mg SR Cap PO SCH (11:18)
--- NOTE | 2018-05-10 12:07 | MRI ---
Date of service: 05/10/2018 PROCEDURE: MRI BRAIN WITHOUT CONTRAST HISTORY: Intracranial hypertension COMPARISON: Comparison made with CT scan brain dated 05/08/2018. TECHNIQUE: Multiplanar, multisequence MR images of the brain were obtained without intravenous contrast enhancement. FINDINGS: HEMORRHAGE: No acute parenchymal, subarachnoid nor extra-axial hemorrhage. No evidence of hemosiderin deposition identified on gradient echo weighted sequence DWI: No evidence of an acute or early subacute infarction seen on diffusion imaging. BRAIN PARENCHYMA: No mass effect or edema. No atrophy or chronic microvascular ischemic changes. . VENTRICLES: No obstructive hydrocephalus. CRANIUM: Unremarkable. ORBITS: Grossly unremarkable. PARANASAL SINUSES/MASTOIDS: Clear VASCULAR SYSTEM: Visualized major vascular flow voids at skull base patent. OTHER FINDINGS: Partially empty sella. The optic nerve heads and do not appear bulbous or bulging however the optic nerves are slightly tortuous more so on the right side. Note that both findings of partially empty sella or slightly tortuous intraorbital segments of the optic nerves can be seen in the intracranial hypertension. Clinical correlation recommended. IMPRESSION: No evidence of acute intracranial hemorrhage or infarct. No masses are identified. No evidence of hydrocephalus. Partially empty sella. The optic nerve heads and do not appear bulbous or bulging however the optic nerves are slightly tortuous more so on the right side. Note that both findings of partially empty sella or slightly tortuous intraorbital segments of the optic nerves can be seen in the intracranial hypertension. Clinical correlation recommended.
--- NOTE | 2018-05-10 12:10 | MRI ---
Date of service: 05/10/2018 PROCEDURE: MR LUMBAR SPINE WITHOUT CONTRAST HISTORY: back and lower extremity pain COMPARISON: None available. TECHNIQUE: Multiecho multiplanar sequences were performed through the lumbar spine without the use of intravenous contrast. Note that the study is suboptimal due to motion artifact. FINDINGS: Normal lumbar lordosis. Vertebral body heights are preserved. Marrow signal unremarkable. Conus medullaris terminates at approximately the L1-L2 level. Paraspinal soft tissues are unremarkable. T12-L1: No disc herniation, spinal canal stenosis or neural foraminal narrowing. L1-2: No disc herniation, spinal canal stenosis or neural foraminal narrowing. L2-3: No disc herniation, spinal canal stenosis or neural foraminal narrowing. L3-4: No disc herniation, spinal canal stenosis or neural foraminal narrowing. L4-5: No disc herniation, spinal canal stenosis or neural foraminal narrowing. L5-S1: No disc herniation, spinal canal stenosis or neural foraminal narrowing. OTHER FINDINGS: None. IMPRESSION: Limited motion otherwise unremarkable non contrast enhanced MRI of the lumbar spine.
--- NOTE | 2018-05-10 15:29 | CP.PCM.PN ---
Subjective - Date & Time of Evaluation Date of Evaluation: 05/10/18 Time of Evaluation: 11:00 - Subjective Subjective: Alert, awake, no acute pain or distress. Objective - Vital Signs/Intake and Output Vital Signs (last 24 hours): Temp Pulse Resp BP Pulse Ox 98.2 F 85 20 99/62 L 96 05/10/18 08:07 05/10/18 08:07 05/10/18 08:07 05/10/18 08:07 05/10/18 08:07 Intake and Output: 05/10/18 05/10/18 06:59 18:59 Intake Total 880 Balance 880 - Labs Labs: 05/08/18 06:52 05/08/18 06:52 Assessment and Plan - Assessment and Plan (Free Text) Assessment: Patient admitted with bilateral leg pain, chronic low back pain, and anxiety seen and examined. Alert and orientedx3, able to walk with no help, walker given for safety. MRI of lumbar spine shows no acute findings. Discussed with DR Penn, plan to discharge home today. Advised to follow up in 1 week with PMD and the Neurologist. Patient and family verbalized understanding of instructions given. Discharged on present medications.
--- NOTE | 2018-05-11 14:58 | VASCLAB ---
Date of service: 05/08/2018 PROCEDURE: Lower Extremity Venous Duplex Exam. HISTORY: intractable bilateral leg pain PRIORS: None. TECHNIQUE: Bilateral common femoral, femoral, popliteal and posterior tibial, peroneal and great saphenous veins were evaluated. Flow was assessed with color Doppler, compressibility, assessment of phasic flow and augmentation response. Report prepared by Kaci Gifford S FINDINGS: RIGHT: 1. Common Femoral Vein: 1.1. Compressibility - Fully compressible: Thrombus - None : Flow - Phasic: Augmentation -Normal: Reflux - None. 2. Femoral Vein: 2.1. Compressibility - Fully compressible: Thrombus - None : Flow - Phasic: Augmentation -Normal: Reflux - None. 3. Popliteal Vein: 3.1. Compressibility - Fully compressible: Thrombus - None : Flow - Phasic: Augmentation -Normal: Reflux - None. 4. Posterior Tibial Vein: 4.1. Compressibility - Fully compressible: Thrombus - None: Flow - Phasic: Augmentation -Normal: Reflux - None. 5. Peroneal Vein: 5.1. Compressibility - Fully compressible: Thrombus - None: Flow - Phasic: Augmentation -Normal: Reflux - None. 6. Great Saphenous Vein: 6.1. Compressibility - Fully compressible: Thrombus - None: Flow - Phasic: Augmentation - Normal: Reflux - None. LEFT: 1. Common Femoral Vein: 1.1. Compressibility - Fully compressible: Thrombus - None: Flow - Phasic: Augmentation -Normal: Reflux - None. 2. Femoral Vein: 2.1. Compressibility - Fully compressible: Thrombus - None: Flow - Phasic: Augmentation -Normal: Reflux - None. 3. Popliteal Vein: 3.1. Compressibility - Fully compressible: Thrombus - None : Flow - Phasic: Augmentation -Normal: Reflux - None. 4. Posterior Tibial Vein: 4.1. Compressibility - Fully compressible: Thrombus - None: Flow - Phasic: Augmentation -Normal: Reflux - None. 5. Peroneal Vein: 5.1. Compressibility - Fully compressible: Thrombus - None: Flow - Phasic: Augmentation -Normal: Reflux - None. 6. Great Saphenous Vein: 6.1. Compressibility - Fully compressible: Thrombus - None: Flow - Phasic: Augmentation - Normal: Reflux - None. OTHER FINDINGS: Right: None significant. Left: None significant. IMPRESSION: Right: No evidence of deep or superficial vein thrombosis of the right lower extremity. Normal valve function noted of the right side. Left: No evidence of deep or superficial vein thrombosis of the left lower extremity. Normal valve function noted of the left side.
[2018-05-11 15:05] LABS: B2 GLYCOPROTEIN I AB(IGA) <9 SAU (<=20); B2 GLYCOPROTEIN I AB(IGG) <9 SGU (<=20); B2 GLYCOPROTEIN I AB(IGM) <9 SMU (<=20)
[2018-05-11 16:55] LABS: RNP <1.0 AI (<1.0)
[2018-05-11 20:05] LABS: CARDIOLIPIN AB (IGA) <11 APL (<=11); CARDIOLIPIN AB (IGG) <14 GPL (<=14); CARDIOLIPIN AB (IGM) <12 MPL (<=12)
== END 2018-05-10 14:27 | disposition home or self-care (01) | DRG 247 ==
LOC: C.ER 15:40 → C.9E 19:21 → C.3T 19:40 → OBSVTOIN 05-09 10:18
PROVIDERS: ADMIT Internal Medicine; ATTEND Internal Medicine
DX: M79.605 Pain in left leg (principal); M79.604 Pain in right leg; G93.2 Benign intracranial hypertension; T42.6X5A Adverse effect of other antiepileptic and sedative-hypnotic drugs, initial encounter; E66.9 Obesity, unspecified; Z68.38 Body mass index [BMI] 38.0-38.9, adult; F41.9 Anxiety disorder, unspecified; G89.29 Other chronic pain; M41.9 Scoliosis, unspecified; J45.909 Unspecified asthma, uncomplicated; R20.2 Paresthesia of skin; M54.9 Dorsalgia, unspecified; F17.210 Nicotine dependence, cigarettes, uncomplicated; F32.9 Major depressive disorder, single episode, unspecified

== ENCOUNTER 2018-06-04 13:43 | Emergency (ER) | payer OTHER ==
[2018-06-04 13:44] VITALS: BMI 42.5
[2018-06-04 14:00] VITALS: BP 131/80; PULSE 77; RESP 20; TEMP 98.1; O2SAT 100
--- NOTE | 2018-06-04 15:01 | C.PDOC ---
History Of Present Illness 22 y/o F presents with vaginal bleeding, lower abdominal cramping x 5 days. Patient states she was given misoprostol for , took x 2 Thursday night, began having cramps and passing large blood clot Thursday morning. States that since then, she has been having cramping pain and bleeding. She went to OB for follow up appointment today not realizing that her appointment was yesterday so she missed it. Her OB was not in today and she was told by the RN to come to the ED. Patient denies any LOC, near syncope, palpitations, dyspnea, vomiting. She states she was told by her mother that she has an ibuprofen allergy but she states she takes Advil without any problem. Time Seen by Provider: 06/04/18 14:20 Chief Complaint (Nursing): Abdominal Pain Past Medical History Vital Signs: Last Vital Signs Temp 98.1 F 06/04/18 13:56 Pulse 77 06/04/18 13:56 Resp 20 06/04/18 13:56 BP 131/80 06/04/18 13:56 Pulse Ox 100 06/04/18 15:01 - Medical History PMH: Anxiety, Asthma, Bronchitis, Migraine Denies: Depression, Diabetes, HTN, Chronic Kidney Disease - [facility] Procedures EXTRACTION OF POC, LOW CERVICAL, OPEN APPROACH (08/07/17) MONITORING OF POC, CARDIAC RATE, SENIOR ACCOUNT DIRECTOR APPROACH (08/07/17) RELEASE PERITONEUM, OPEN APPROACH (02/05/16) SPINAL TAP (01/09/14) TRANSFUSE NONAUT RED BLOOD CELLS IN PERIPH VEIN, PERC (02/05/16) Family History: States: Unknown Family Hx - Social History Hx Tobacco Use: Yes Hx Alcohol Use: Yes Hx Substance Use: No - Immunization History Hx Tetanus Toxoid Vaccination: Yes Hx Influenza Vaccination: No Hx Pneumococcal Vaccination: (unk) Review Of Systems Except As Marked, All Systems Reviewed And Found Negative. Constitutional: Negative for: Fever Cardiovascular: Negative for: Chest Pain Physical Exam - Physical Exam Additional Physical Exam Comments: Gen: NAD Head: NC/AT Eyes: PERRL ENT: MMM Neck: Supple Chest: No tenderness CV: Regular rate Lungs: CTA b/l Abd: Soft, NT Back: No CVA tenderness Extremities: No edema Skin: No rash Neuro: Alert ED Course And Treatment O2 Sat by Pulse Oximetry: 100 Medical Decision Making Medical Decision Making: Patient administered ibuprofen without any allergy observed. Advised continue NSAIDs and warm compresses to area. Patient states she will be able to get another appointment with OB within the next week, where I informed her she will likely have repeat US to evaluate for completion but at this point, too early. Disposition - Disposition Referrals: Tonia Salter [Medical Doctor] - Disposition: HOME/ ROUTINE Disposition Time: 14:59 Condition: STABLE Instructions: Misoprostol Forms: [facility] (Slovenian) - Clinical Impression Clinical Impression:
== END 2018-06-04 15:07 | disposition home or self-care (01) ==
LOC: C.ER 13:43
DX: O03.9 Complete or unspecified spontaneous abortion without complication (principal)

== ENCOUNTER 2018-12-19 23:52 | Emergency (ER) | payer OTHER ==
[2018-12-19 23:52] VITALS: BMI 42.5
[2018-12-20 00:03] VITALS: BP 110/74; PULSE 100; RESP 20; TEMP 98.5; O2SAT 100
--- NOTE | 2018-12-20 00:30 | C.PDOC ---
History Of Present Illness 22-year-old female, whose past medical history includes pseudotumor cerebri, presents to the ED for evaluation of an abscess to her left medial thigh for 4 days. Patient reports history of similar symptoms in the past (around 3 times per year), and states she has undergone incision and drainage of the area previously. Patient denies fever, chills. Time Seen by Provider: 12/20/18 00:03 Chief Complaint (Nursing): Abnormal Skin Integrity History Per: Patient History/Exam Limitations: no limitations Onset/Duration Of Symptoms: Days (4) Current Symptoms Are (Timing): Still Present Location Of Injury: Left: Thigh (medial ) Additional History Per: Patient Past Medical History Reviewed: Historical Data, Nursing Documentation, Vital Signs Vital Signs: Last Vital Signs Temp 98.5 F 12/20/18 00:00 Pulse 100 H 12/20/18 00:00 Resp 20 12/20/18 00:00 BP 110/74 12/20/18 00:00 Pulse Ox 100 12/20/18 00:00 - Medical History PMH: Anxiety, Asthma, Bronchitis, Migraine Denies: Depression, Diabetes, HTN, Chronic Kidney Disease Surgical History: No Surg Hx - [facility] Procedures EXTRACTION OF POC, LOW CERVICAL, OPEN APPROACH (08/07/17) MONITORING OF POC, CARDIAC RATE, INDUSTRIAL WASTE INSPECTOR APPROACH (08/07/17) RELEASE PERITONEUM, OPEN APPROACH (02/05/16) SPINAL TAP (01/09/14) TRANSFUSE NONAUT RED BLOOD CELLS IN PERIPH VEIN, PERC (02/05/16) Family History: States: Unknown Family Hx - Social History Hx Tobacco Use: Yes Hx Alcohol Use: Yes Hx Substance Use: No - Immunization History Hx Tetanus Toxoid Vaccination: Yes Hx Influenza Vaccination: No Hx Pneumococcal Vaccination: (unk) Review Of Systems Constitutional: Negative for: Fever, Chills Skin: Positive for: Other (abscess to left medial thigh ). Negative for: Rash, Lesions, Jaundice, Bruising Neurological: Negative for: Weakness, Numbness Physical Exam - Physical Exam Appears: Well, Non-toxic, No Acute Distress Skin: Normal Color, Warm, No Rash, Other ([id number] area of induration with ce ntral fluctuance to left medial thigh. no drainage noted. ) Extremity: Normal ROM, Capillary Refill (less than 2 seconds) Extremity: Bilateral: Atraumatic Neurological/Psych: Oriented x3, Normal Cranial Nerves (grossly intact ) ED Course And Treatment O2 Sat by Pulse Oximetry: 100 (on RA ) Pulse Ox Interpretation: Normal - Incision & Drainage Of Abscess Anesthesia: Lidocaine 1% Prep Used: Sterile Water Procedure: Drained Pus (5cc), Irrigated Cavity W/Saline, Probed To Break Up Loculations, Packed W/Gauze, Cultures Obtained And Sent To Lab Medical Decision Making Medical Decision Making: Progress: Ultram PO given. Procedure: Local anesthesia achieved the 1% Lidocaine without epinephrine. Area cleansed with sterile saline. Incision made with sterile #11 blade scalpel. Approximately 5cc of purulent discharge expressed. Sterile quarter-inch packing placed in incision. Wound dressed in dry, sterile dressing. Patient tolerated well. On reassessment, patient is resting comfortably, showing no signs of distress and is stable for discharge. Patient will be prescribed antibiotics and is advised to return for wound check in two days. Disposition Counseled Patient/Family Regarding: Diagnosis, Need For Followup, Rx Given - Disposition Disposition: HOME/ ROUTINE Disposition Time: 00:28 Condition: IMPROVED Prescriptions: Cephalexin [cephalexin] 500 mg PO TID #21 cap Instructions: Abscess Incision and Drainage (DC) Forms: General Discharge Instructions, [facility] (Estonian), Work Excuse - Clinical Impression Clinical Impression: Abscess - PA / CUSTODIAN SUPERVISOR / Resident Statement MD/DO has reviewed & agrees with the documentation as recorded. - Scribe Statement The provider has reviewed the documentation as recorded by the Scribe (Rupa Wilder) All medical record entries made by the Scribe were at my direction and personally dictated by me. I have reviewed the chart and agree that the record accurately reflects my personal performance of the history, physical exam, medical decision making, and the department course for this patient. I have also personally directed, reviewed, and agree with the discharge instructions and disposition.
== END 2018-12-20 00:40 | disposition home or self-care (01) ==
LOC: C.ER 23:52
DX: L02.416 Cutaneous abscess of left lower limb (principal)

== ENCOUNTER 2018-12-21 22:02 | Emergency (ER) | payer OTHER ==
[2018-12-21 22:02] VITALS: BMI 42.5
[2018-12-21 22:42] VITALS: BP 108/68; PULSE 89; TEMP 97.6; O2SAT 100
[2018-12-21 23:34] VITALS: RESP 20
--- NOTE | 2018-12-21 23:34 | C.PDOC ---
History Of Present Illness 22 year old female presents to the ED for wound check and packing removal. Patient has an I&D done in the ED 2 day ago in her left upper thigh area. Patient states she is currently taking the antibiotics prescribed to her last visit. Patient denies fever, chills, rash, drainage. Time Seen by Provider: 12/21/18 22:48 Chief Complaint (Nursing): Wound Check History Per: Patient History/Exam Limitations: no limitations Onset/Duration Of Symptoms: Days Ago (2) Current Symptoms Are (Timing): Still Present Location Of Injury: Left: Leg Quality Of Symptoms: Swollen Recent travel outside of the [place]: No Additional History Per: Patient Past Medical History Reviewed: Historical Data, Nursing Documentation, Vital Signs Vital Signs: Last Vital Signs Temp 97.6 F 12/21/18 22:39 Pulse 89 12/21/18 22:39 Resp 18 12/21/18 22:39 BP 108/68 12/21/18 22:39 Pulse Ox 100 12/21/18 22:39 - Medical History PMH: Asthma, Bronchitis, Migraine Denies: Anxiety, Depression, Diabetes, HTN, Chronic Kidney Disease Surgical History: No Surg Hx - [facility] Procedures EXTRACTION OF POC, LOW CERVICAL, OPEN APPROACH (08/07/17) MONITORING OF POC, CARDIAC RATE, BUILDING GUARD DEPUTY SHERIFF APPROACH (08/07/17) RELEASE PERITONEUM, OPEN APPROACH (02/05/16) SPINAL TAP (01/09/14) TRANSFUSE NONAUT RED BLOOD CELLS IN PERIPH VEIN, PERC (02/05/16) Family History: States: Unknown Family Hx - Social History Hx Tobacco Use: Yes Hx Alcohol Use: Yes Hx Substance Use: No - Immunization History Hx Tetanus Toxoid Vaccination: Yes Hx Influenza Vaccination: No Hx Pneumococcal Vaccination: (unk) Review Of Systems Constitutional: Negative for: Fever, Chills Musculoskeletal: Negative for: Leg Pain Skin: Positive for: Other (abscess ). Negative for: Rash Neurological: Negative for: Weakness, Headache, Dizziness Physical Exam - Physical Exam Appears: Non-toxic, No Acute Distress Skin: Normal Color, Warm, Dry Head: Atraumatic, Normacephalic Eye(s): bilateral: Normal Inspection Neck: Normal ROM, Supple Extremity: Normal ROM, No Tenderness, Capillary Refill (< 2 seconds), No Swelling, Other (left upper thigh clean, dry and healing abscess with packing, no signs of infection, erythema or cellulitis) Pulses: Left Dorsalis Pedis: Normal, Right Dorsalis Pedis: Normal Neurological/Psych: Oriented x3, Normal Speech, Normal Cognition, Normal Motor, Normal Sensation Gait: Steady ED Course And Treatment O2 Sat by Pulse Oximetry: 100 (On RA) Pulse Ox Interpretation: Normal Progress Note: Packing was removed, wound was irrigated with sterile saline. There was no purulent discharge seen. Patient was advised on proper wound care and to complete the antibiotics prescribed to her Disposition Counseled Patient/Family Regarding: Diagnosis, Need For Followup - Disposition Referrals: Simone Gill MD [Medical Doctor] - Disposition: HOME/ ROUTINE Disposition Time: 23:31 Condition: STABLE Additional Instructions: Please follow up with PMD Continue antibiotics Return to ER if worse Forms: General Discharge Instructions - Clinical Impression Clinical Impression: Visit for wound check, Abscess packing removal - PA / VP SOFTWARE / Resident Statement MD/DO has reviewed & agrees with the documentation as recorded. - Scribe Statement The provider has reviewed the documentation as recorded by the Scribe Loi Walls All medical record entries made by the Scribe were at my direction and personally dictated by me. I have reviewed the chart and agree that the record accurately reflects my personal performance of the history, physical exam, medical decision making, and the department course for this patient. I have also personally directed, reviewed, and agree with the discharge instructions and disposition.
== END 2018-12-21 23:33 | disposition home or self-care (01) ==
LOC: C.ER 22:02
DX: Z48.00 Encounter for change or removal of nonsurgical wound dressing (principal); L02.416 Cutaneous abscess of left lower limb

== ENCOUNTER 2019-02-01 19:34 | Emergency (ER) | payer OTHER ==
[2019-02-01 19:34] VITALS: BMI 42.5
[2019-02-01] MEDS ORDERED: Sodium Chloride 0.9% 1,000 ML IV ONE (20:05)
[2019-02-01 20:28] VITALS: PULSE 88; RESP 20; TEMP 98.2; O2SAT 100
[2019-02-01] MEDS ORDERED: Iodixanol 320 MG/ML 100 ML BOTTLE IV ONE (20:59)
[2019-02-01 21:06] LABS: SQUAMOUS EPITHIAL 10 /hpf (0-5); URINE BILIRUBIN NEGATIVE (NEGATIVE); URINE BLOOD NEGATIVE (NEGATIVE); URINE CLARITY Hazy (Clear); URINE COLOR Yellow (YELLOW); URINE GLUCOSE (UA) NORMAL (Normal); URINE LEUKOCYTE ESTERASE NEG Leu/uL (Negative); URINE PROTEIN NEGATIVE (NEGATIVE); URINE UROBILINOGEN NORMAL mg/dL (0.2-1.0)
[2019-02-01 21:32] LABS: BASO % 0.4 % (0.0-2.0); EOS # 0.1 K/uL (0.0-0.7); EOS % 0.6 % (0.0-4.0); LYMPH # 2.2 K/uL (1.0-4.3); LYMPH % 24.5 % (20.0-40.0); MEAN CELL VOLUME 75.1 fL (81.0-99.0); MEAN CORPUSCULAR HEMOGLOBIN 23.7 pg (27.0-31.0); MEAN CORPUSCULAR HGB CONC 31.5 g/dL (33.0-37.0); MONO # 0.5 K/uL (0.0-0.8); MONO % 5.5 % (0.0-10.0); NEUT # 6.3 K/uL (1.8-7.0); NRBC % 0.1 % (0.0-2.0); RBC 4.88 Mil/uL (3.80-5.20); RED CELL DISTRIBUTION WIDTH 20.8 % (11.5-14.5); WHITE BLOOD COUNT 9.1 K/uL (4.8-10.8)
[2019-02-01 21:34] LABS: HEMOGLOBIN 11.6 g/dL (11.0-16.0)
[2019-02-01 21:36] LABS: BLOOD UREA NITROGEN 10 mg/dL (7-17); CALCIUM 9.1 mg/dl (8.6-10.4); GFR NON-AFRICAN AMERICAN > 60
[2019-02-01 21:37] LABS: ALB/GLOB RATIO 1.3 (1.0-2.1); ALBUMIN 4.4 g/dL (3.5-5.0); LIPASE 45 U/L (23-300)
[2019-02-01 21:38] LABS: ALT/SGPT 16 U/L (9-52); AST/SGOT 28 U/L (14-36)
--- NOTE | 2019-02-01 22:30 | C.PDOC ---
History Of Present Illness 23 year old female presents to the ED c/o abdominal pain associated with nausea, vomit and diarrhea for the past one day. Patient denies fever, chills, headache, CP, SOB, dysuria, hematuria, blood in stool, weakness, numbness. Time Seen by Provider: 02/01/19 20:05 Chief Complaint (Nursing): Abdominal Pain History Per: Patient History/Exam Limitations: no limitations Onset/Duration Of Symptoms: Days (1) Current Symptoms Are (Timing): Still Present Location Of Pain/Discomfort: Diffuse Quality Of Discomfort: "Pain" Associated Symptoms: Nausea, Vomiting, Diarrhea. denies: Urinary Symptoms Recent travel outside of the [place]: No Additional History Per: Patient Abnormal Vaginal Bleeding: No Past Medical History Reviewed: Historical Data, Nursing Documentation, Vital Signs Vital Signs: Last Vital Signs Temp 98.2 F 02/01/19 20:26 Pulse 88 02/01/19 20:26 Resp 20 02/01/19 20:26 BP 123/77 02/01/19 20:26 Pulse Ox 100 02/01/19 20:26 Primary Care Provider: Simone Gill - Medical History PMH: Asthma, Bronchitis, Migraine Denies: Anxiety, Depression, Diabetes, HTN, Chronic Kidney Disease Surgical History: No Surg Hx - [facility] Procedures EXTRACTION OF POC, LOW CERVICAL, OPEN APPROACH (08/07/17) MONITORING OF POC, CARDIAC RATE, BOLT HEADER APPROACH (08/07/17) RELEASE PERITONEUM, OPEN APPROACH (02/05/16) SPINAL TAP (01/09/14) TRANSFUSE NONAUT RED BLOOD CELLS IN PERIPH VEIN, PERC (02/05/16) Family History: States: Unknown Family Hx - Social History Hx Tobacco Use: Yes Hx Alcohol Use: Yes Hx Substance Use: No - Immunization History Hx Tetanus Toxoid Vaccination: Yes Hx Influenza Vaccination: No Hx Pneumococcal Vaccination: Yes Review Of Systems Constitutional: Negative for: Fever, Chills Cardiovascular: Negative for: Chest Pain Respiratory: Negative for: Shortness of Breath Gastrointestinal: Positive for: Nausea, Vomiting, Abdominal Pain, Diarrhea Genitourinary: Negative for: Dysuria Musculoskeletal: Negative for: Back Pain Skin: Negative for: Rash Neurological: Negative for: Weakness, Numbness, Headache, Dizziness Physical Exam - Physical Exam Appears: Non-toxic, No Acute Distress Skin: Normal Color, Warm, Dry Head: Atraumatic, Normacephalic Eye(s): bilateral: Normal Inspection Neck: Normal ROM, Supple Chest: Symmetrical Cardiovascular: Rhythm Regular Respiratory: Normal Breath Sounds, No Rales, No Rhonchi, No Wheezing Gastrointestinal/Abdominal: Soft, Tenderness (mid abdomen ), No Guarding, No Rebound Extremity: Normal ROM, No Tenderness, No Swelling Neurological/Psych: Oriented x3, Normal Speech, Normal Cognition Gait: Steady ED Course And Treatment - Laboratory Results Result Diagrams: 02/01/19 21:21 02/01/19 21:21 Lab Results: Total Bilirubin 0.5 mg/dL (0.2-1.3) 02/01/19 21:21 AST 28 U/L (14-36) 02/01/19 21:21 ALT 16 U/L (9-52) 02/01/19 21:21 Alkaline Phosphatase 42 U/L (38-126) 02/01/19 21:21 Total Protein 7.7 g/dL (6.3-8.3) 02/01/19 21:21 Albumin 4.4 g/dL (3.5-5.0) 02/01/19 21:21 Globulin 3.4 gm/dL (2.2-3.9) 02/01/19 21:21 Albumin/Globulin Ratio 1.3 (1.0-2.1) 02/01/19 21:21 Lipase 45 U/L (23-300) 02/01/19 21:21 Urine Color Yellow (YELLOW) 02/01/19 20:57 Urine Clarity Hazy (Clear) 02/01/19 20:57 Urine pH 6.0 (5.0-8.0) 02/01/19 20:57 Ur Specific [place] 1.012 (1.003-1.030) 02/01/19 20:57 Urine Protein Negative mg/dL (NEGATIVE) 02/01/19 20:57 Urine Glucose (UA) Normal mg/dL (Normal) 02/01/19 20:57 Urine Ketones Negative mg/dL (NEGATIVE) 02/01/19 20:57 Urine Blood Negative (NEGATIVE) 02/01/19 20:57 Urine Nitrate Negative (NEGATIVE) 02/01/19 20:57 Urine Bilirubin Negative (NEGATIVE) 02/01/19 20:57 Urine Urobilinogen Normal mg/dL (0.2-1.0) 02/01/19 20:57 Ur Leukocyte Esterase Neg [place]/uL (Negative) 02/01/19 20:57 Urine WBC (Auto) 1 /hpf (0-5) 02/01/19 20:57 Urine RBC (Auto) 1 /hpf (0-3) 02/01/19 20:57 Ur Squamous Epith Cells 10 /hpf (0-5) H 02/01/19 20:57 Urine HCG, Qual Negative (NEGATIVE) 02/01/19 20:57 Urine HCG, Qual Negative (NEGATIVE) 02/01/19 20:57 O2 Sat by Pulse Oximetry: 100 (ON RA) Pulse Ox Interpretation: Normal - CT Scan/US CT abd/pelvis Other Rad Studies (CT/US): Read By Radiologist, Radiology Report Reviewed CT/US Interpretation: CT Abdomen and Pelvis with IV contrast. CLINICAL HISTORY: Mid abdominal pain. TECHNIQUE: Axial computed tomography images of the abdomen and pelvis with intravenous contrast. 0.00 mGy-cm. CONTRAST: With; 100MLS VISI 320. COMPARISON: None provided. FINDINGS: LUNG BASES: The lung bases appear clear. No pleural effusions are seen. LIVER: There is hepatomegaly. The liver measured an estimated 17.6 cm in the midclavicular line. GALLBLADDER AND BILE DUCTS: The gallbladder appears within normal limits. No radioopaque gallstones are seen. No biliary ductal dilatation is evident. PANCREAS: Unremarkable. SPLEEN: Unremarkable. ADRENAL GLANDS: Unremarkable. KIDNEYS, URETERS, AND BLADDER: The kidneys appear within normal limits. There is no hydronephrosis or hydroureter. No urinary calculi are seen. The urinary bladder appeared normal in size and configuration. Although not fully distended, there is bladder wall thickening present (up to 5 mm) compatible with cystitis. STOMACH AND BOWEL: Unremarkable appearance of the stomach and bowel. No evidence of bowel obstruction. No evidence suggesting enteritis or colitis. APPENDIX: No evidence of acute appendicitis on CT e xamination. PERITONEUM: No free fluid. No free air. LYMPH NODES: No lymphadenopathy is evident. REPRODUCTIVE: Unremarkable as visualized. VASCULATURE: No evidence of abdominal aortic aneurysm. BONES: No aggressive appearing osseous lesion. No acute osseous pathology evident. IMPRESSION: 1. Mild thickening of the urinary bladder compatible with cystitis. 2. Hepatomegaly. . Electronically signed on Feb 01, 2019 10:27:13 PM EDT by: Arvind Mathews M.D., M.B.A., Certified By [employer]. Fellowship Trained MRI and CT Specialist Medical Decision Making Medical Decision Making: Plan: * CT abd/pelvis * Labs * Pepcid 20 mg IVP * IV fluids * Zofran 8 mg IVP * Urine culture * UA Disposition - Disposition Referrals: Simone Gill MD [Medical Doctor] - Disposition: HOME/ ROUTINE Disposition Time: 22:25 Condition: GOOD Additional Instructions: VIDHI MORAN, thank you for letting us take care of you today. The emergency medical care you received today was directed at your acute symptoms. If you were prescribed any medication, please fill it and take as directed. It may take several days for your symptoms to resolve. Return to the Emergency Department if your symptoms worsen, do not improve, or if you have any other problems. Please contact your doctor or call one of the physicians/clinics you have been referred to that are listed on the Patient Visit Information form that is included in your discharge packet. Bring any paperwork you were given at discharge with you along with any medications you are taking to your follow up visit. Our treatment cannot replace ongoing medical care by a primary care provider outside of the emergency department. Thank you for allowing the [facility] team to be part of your care today. Follow up with your primary care doctor in 3-4 days for re-evaluation and further management. Prescriptions: Ciprofloxacin [Cipro] 500 mg PO BID #14 tab Phenazopyridine [Pyridium] 100 mg PO TID #6 tab Instructions: Acute Cystitis (DC) Forms: [facility] Processing (Hebrew) - Clinical Impression Clinical Impression: Cystitis - Scribe Statement The provider has reviewed the documentation as recorded by the Scribe Loi Walls All medical record entries made by the Scribe were at my direction and personally dictated by me. I have reviewed the chart and agree that the record accurately reflects my personal performance of the history, physical exam, medical decision making, and the department course for this patient. I have also personally directed, reviewed, and agree with the discharge instructions and disposition.
[2019-02-02 01:08] VITALS: BP 124/78
--- NOTE | 2019-02-02 08:35 | CT ---
Date of service: 02/01/2019 PROCEDURE: CT Abdomen and Pelvis with intravenous contrast HISTORY: mid-abdominal pain COMPARISON: None. TECHNIQUE: Multiple contiguous axial images were performed through the abdomen and pelvis with the use of intravenous contrast. Subsequently, sagittal and coronal reformatted images were obtained. Radiation dose: Total exam DLP = 1174.44 mGy-cm. This CT exam was performed using one or more of the following dose reduction techniques: Automated exposure control, adjustment of the mA and/or kV according to patient size, and/or use of iterative reconstruction technique. FINDINGS: LOWER THORAX: Unremarkable. LIVER: Prominent liver with mild fatty infiltration. GALLBLADDER AND BILE DUCTS: Unremarkable. PANCREAS: Unremarkable. No gross lesion or ductal dilatation. SPLEEN: Unremarkable. ADRENALS: Unremarkable. No mass. KIDNEYS AND URETERS: Unremarkable. No hydronephrosis. No solid mass. VASCULATURE: Unremarkable. No aortic aneurysm. No aortic atherosclerotic calcification or mural plaque present. BOWEL: Unremarkable. No obstruction. No gross mural thickening. Under distended descending and sigmoid colon. APPENDIX: Unremarkable. Normal appendix. PERITONEUM: Unremarkable. No free fluid. No free air. LYMPH NODES: Unremarkable. No enlarged lymph nodes. BLADDER: Underdistended and or mildly thick-walled urinary bladder. Clinical correlation. REPRODUCTIVE: Heterogeneous uterus and bilateral adnexa. 2.3 centimeter right adnexal cyst. BONES: No acute fracture. OTHER FINDINGS: None. IMPRESSION: Underdistended and or mildly thick-walled urinary bladder. Clinical correlation. 2.3 centimeter right adnexal cyst. Prominent liver with mild fatty infiltration. Clinical correlation. Under distended descending and sigmoid colon. A preliminary report was generated at 10:27 p.m. on 02/01/[address] Arvind Mathews from [facility]
== END 2019-02-01 22:45 | disposition home or self-care (01) ==
LOC: C.ER 19:34
DX: N30.90 Cystitis, unspecified without hematuria (principal); Z72.0 Tobacco use
CPT/HCPCS: 74177; 80053; 81001; 83690; 84703; 85025; 87086; 99285; Q9967